=== PATIENT | male | born 1970 | race Caucasian/White ===

== ENCOUNTER 2023-01-22 09:07 | Day surgery (SDC) | payer OTHER ==
[~2023-01-22 09:07] MED LIST: Lactated Ringers 1,000 ML IV SCH
[2023-01-22] MEDS ORDERED: Lidocaine 2% 5 ML SDV ONE (09:51)
[2023-01-22] MEDS ORDERED: fentaNYL 100 MCG/2 ML SDV ONE (09:51)
[2023-01-22] MEDS ORDERED: Propofol 200 MG/20 ML SDV ONE (09:51)
== END 2023-01-22 11:25 | disposition home or self-care (01) ==
LOC: MW.SDS 09:07
PROVIDERS: ATTEND Surgery
DX: Z12.11 Encounter for screening for malignant neoplasm of colon (principal); K57.30 Diverticulosis of large intestine without perforation or abscess without bleeding; K64.8 Other hemorrhoids; K40.90 Unilateral inguinal hernia, without obstruction or gangrene, not specified as recurrent; Z88.0 Allergy status to penicillin; Z87.891 Personal history of nicotine dependence
CPT/HCPCS: 45378; J2704; J3010; J7120; J3490

== ENCOUNTER 2023-02-05 06:37 | Day surgery (SDC) | payer OTHER ==
[~2023-02-05 06:37] MED LIST changes: +Acetaminophen 1,000 MG in Premix Bag 1 BAG IV SCH; +Pregabalin 75 MG Cap PO SCH
[2023-02-05] MEDS ORDERED: Bupivacaine 0.5% 30 ML SDV ONE (07:23)
[2023-02-05] MEDS ORDERED: Propofol 200 MG/20 ML SDV ONE ×2 (07:25→09:20)
[2023-02-05] MEDS ORDERED: Dexamethasone 4 MG/ML 5 ML MDV ONE (07:26)
[2023-02-05] MEDS ORDERED: Rocuronium Bromide 50 MG/5 ML Syringe ONE (07:26)
[2023-02-05] MEDS ORDERED: Ketorolac 30 MG/ML SDV ONE (07:26)
[2023-02-05] MEDS ORDERED: Dexmedetomidine 200 MCG/2 ML SDV ONE (07:26)
[2023-02-05] MEDS ORDERED: Lidocaine 1% 5 ML VIAL ONE (07:26)
[2023-02-05] MEDS ORDERED: fentaNYL 100 MCG/2 ML SDV ONE ×2 (07:26→08:25)
[2023-02-05] MEDS ORDERED: Ondansetron 4 MG/2 ML SDV ONE (07:26)
[2023-02-05] MEDS ORDERED: Ropivacaine 0.5% 5 MG/ML 30 ML SDV ONE (07:28)
[2023-02-05] MEDS ORDERED: fentaNYL 50 MCG/ML SDV IVPUSH PRN (07:43)
[2023-02-05] MEDS ORDERED: Metoclopramide 10 MG/2 ML SDV IVPUSH PRN (07:43)
[2023-02-05] MEDS ORDERED: Ondansetron 4 MG/2 ML SDV IVPUSH PRN (07:43)
[2023-02-05] MEDS ORDERED: Morphine 2 MG/ML SYRINGE IVPUSH PRN (07:43)
[2023-02-05] MEDS ORDERED: Albuterol 0.083% 2.5 MG/3 ML Neb Soln NEB PRN (07:43)
[2023-02-05] MEDS ORDERED: Naloxone 0.4 MG/ML SDV IVPUSH PRN (07:43)
[2023-02-05] MEDS ORDERED: HYDROmorphone 1 MG/ML Syringe IVPUSH PRN (07:43)
[2023-02-05] MEDS ORDERED: droPERidol 5 MG/2 ML SDV IVPUSH PRN (07:43)
[2023-02-05] MEDS ORDERED: ePHEDrine 50 MG/ML SDV ONE (08:09)
[2023-02-05] MEDS ORDERED: Succinylcholine/Sod PF 100 MG/5 ML SYRINGE IV ONE (08:10)
[2023-02-05] MEDS ORDERED: Magnesium Sulfate (4.06 MEQ/ML) 5 GM/10 ML SDV ONE (08:12)
[2023-02-05] MEDS ORDERED: Phenylephrine HCl 0.5 MG/5 ML AMP ONE (08:14)
[2023-02-05] MEDS ORDERED: Glycopyrrolate 0.2 MG/ML SDV ONE (08:17)
[2023-02-05] MEDS ORDERED: Phenylephrine 1% 10 MG/ML SDV ONE (08:49)
[2023-02-05] MEDS ORDERED: Sugammadex Sodium 200 MG/2 ML VIAL ONE (09:18)
== END 2023-02-05 11:40 | disposition home or self-care (01) ==
LOC: MW.SDS 06:37
PROVIDERS: ATTEND Surgery
DX: K40.90 Unilateral inguinal hernia, without obstruction or gangrene, not specified as recurrent (principal); D17.6 Benign lipomatous neoplasm of spermatic cord; G89.29 Other chronic pain; M54.9 Dorsalgia, unspecified; Z88.0 Allergy status to penicillin; Z80.0 Family history of malignant neoplasm of digestive organs
CPT/HCPCS: 49650; A9270; J0330; J1100; J1885; J2370; J2704; J2795; J3010; J3370; J3475; J3490; J7050; J7120; J2405